=== PATIENT | female | born 1945 | race Two or more races ===

== ENCOUNTER → 2017-03-04 | Outpatient (CLI) | payer OTHER ==
[~2017-03-04] VITALS: Ht 157.5 cm; Wt 61.0 kg
[2017-03-04] VITALS (8 sets, daily range): BP systolic 123–167; BP diastolic 59–73
[~2017-03-04] MED LIST: AMLODIPINE BESYL5 MG PO; ATORVASTATIN CA10 MG PO; LYNPARZA100 MG PO; SYNTHROID50 MCG PO; SYNTHROID75 MCG PO; VALIUM5 MG PO
== END | disposition home or self-care (01) ==
LOC: IVINF 13:30
DX: D64.81 Anemia due to antineoplastic chemotherapy (principal); T45.1X5A Adverse effect of antineoplastic and immunosuppressive drugs, initial encounter
CPT/HCPCS: 36430; 86999; P9016

== ENCOUNTER 2017-07-15 15:49 | Inpatient (IN) | payer OTHER ==
[~2017-07-15] VITALS: Ht 158.8 cm; Wt 59.0 kg
[~2017-07-15 15:49] MED LIST changes: +MIRALAX17 GM PO; +ZOFRAN8 MG PO
[2017-07-15 16:59] LABS: ALBUMIN 4.2 g/dL (3.2-4.8); CHLORIDE 103 mEq/L (99-109); POTASSIUM 4.2 mEq/L (3.7-5.4); SODIUM 137 mEq/L (136-147)
[2017-07-15 17:02] LABS: GLUCOSE 119 mg/dL (70-99)
[2017-07-15 17:04] LABS: TOTAL BILIRUBIN 0.6 mg/dL (0.0-1.0)
[2017-07-15 17:05] LABS: ALKALINE PHOSPHATASE 157 IU/L (3-129); CREATININE 0.8 mg/dL (0.6-1.3); GFR ESTIMATE (CALCULATED) > 59 mL/min/
[2017-07-15 17:06] LABS: UREA NITROGEN (BUN) 16 mg/dL (9-23)
[2017-07-15 17:07] LABS: AST (GOT) 18 IU/L (2-34)
[2017-07-15 17:08] LABS: ALT (GPT) 15 IU/L (3-49)
[2017-07-15 17:09] LABS: LIPASE 5 U/L (1.0-51.0)
[2017-07-15 18:13] LABS: BUFFY COAT SMEAR SEE DIFF RESULTS
[2017-07-15 18:24] LABS: APPEARANCE CLEAR ((CLEAR)); BILIRUBIN NEGATIVE; BLOOD NEGATIVE; COLOR YELLOW ((YELLOW)); GLUCOSE (STRIP) NEGATIVE; KETONES NEGATIVE; LEUKOCYTES NEGATIVE; NITRITE NEGATIVE; PROTEIN (STRIP) NEGATIVE; SPECIFIC GRAVITY 1.013 (1.000-1.030); UCUL ADDED? NO; UROBILINOGEN 0.2 MG/DL (0.2-1.0)
[2017-07-15] MEDS ORDERED: LIDOCAINE-PRIL1 EACH TP (19:39)
[2017-07-15] MEDS ORDERED: AVASTIN400 MG/16 IV (19:40)
[2017-07-15] MEDS ORDERED: DOXIL2 MG/1 ML IV (19:40)
[2017-07-15] MEDS ORDERED: [UNRECOGNIZED DRUG - OTHER] MM (19:41)
[2017-07-15 19:47] LABS: ABS NEUTROPHIL COUNT 0; ANISOCYTOSIS 1+; EOSINOPHIL ABS CT 0; HEMATOCRIT 34.8 % (36.0-46.0); HEMOGLOBIN 11.7 G/DL (11.9-15.5); IMM.PLATELET FRACTION 8.2 (1-7); MCH 31.4 PG (29.0-34.0); MCHC 33.6 G/DL (30.0-36.0); MCV 93.3 FL (83-99); PLAT.SUFFICIENCY VERY DECREASED; RBC DIS.WIDTH-CV 13.1 % (11.8-14.6); RBC DIS.WIDTH-SD 44.9 % (39-53); RED BLOOD COUNT 3.73 M/uL (3.80-5.20); WHITE BLOOD COUNT 0.3 K/uL (4.1-10.2)
[2017-07-15 19:48] LABS: PLATELET COUNT 13 K/uL (156-360)
[2017-07-15 22:20] VITALS: BP 144/67
[2017-07-15 23:49] VITALS: BP 116/56
[2017-07-16] VITALS (10 sets, daily range): BP systolic 124–152; BP diastolic 58–67
[2017-07-16 06:38] LABS: ALBUMIN 3.1 G/DL (3.2-4.8); ALKALINE PHOSPHATASE 91 IU/L (3-129); ALT (GPT) 10 IU/L (3-49); AST (GOT) 13 IU/L (2-34); CHLORIDE 110 MEQ/L (99-109); CREATININE 0.6 MG/DL (0.6-1.3); GFR ESTIMATE (CALCULATED) > 59 mL/min/; GLUCOSE 98 mg/dL (70-99); POTASSIUM 3.6 MEQ/L (3.7-5.4); SODIUM 142 MEQ/L (136-147); TOTAL BILIRUBIN 0.9 MG/DL (0.0-1.0); TOTAL PROTEIN 5.2 G/DL (6.4-8.3); UREA NITROGEN (BUN) 10 mg/dL (9-23)
[2017-07-16 06:51] LABS: HEMATOCRIT 24.6 % (36.0-46.0); MCH 31.9 PG (29.0-34.0); MCHC 33.7 G/DL (30.0-36.0); MCV 94.6 FL (83-99); RBC DIS.WIDTH-CV 13.1 % (11.8-14.6); RBC DIS.WIDTH-SD 45.3 % (39-53)
[2017-07-16 06:55] LABS: HEMOGLOBIN 8.3 G/DL (11.9-15.5); PLATELET COUNT 83 K/uL (156-360); WHITE BLOOD COUNT 0.3 K/uL (4.1-10.2)
[2017-07-17 06:21] LABS: HEMATOCRIT 23.5 % (36.0-46.0); HEMOGLOBIN 7.9 G/DL (11.9-15.5); MCH 32.4 PG (29.0-34.0); MCHC 33.6 G/DL (30.0-36.0); MCV 96.3 FL (83-99); RBC DIS.WIDTH-CV 12.9 % (11.8-14.6); RBC DIS.WIDTH-SD 45.5 % (39-53); RED BLOOD COUNT 2.44 M/uL (3.80-5.20)
[2017-07-17 06:22] LABS: WHITE BLOOD COUNT 0.4 K/uL (4.1-10.2)
[2017-07-17 06:31] LABS: IMM.PLATELET FRACTION 2.5 (1-7)
[2017-07-17 06:33] LABS: CHLORIDE 112 MEQ/L (99-109); CREATININE 0.6 MG/DL (0.6-1.3); GFR ESTIMATE (CALCULATED) > 59 mL/min/; GLUCOSE 89 mg/dL (70-99); POTASSIUM 3.5 MEQ/L (3.7-5.4); SODIUM 142 MEQ/L (136-147); UREA NITROGEN (BUN) 8 mg/dL (9-23)
[2017-07-17 06:39] LABS: PLATELET COUNT 41 K/uL (156-360)
[2017-07-17 07:25] VITALS: BP 117/56
[2017-07-17 10:51] LABS: PLAT.SUFFICIENCY DECREASED
[2017-07-17 11:34] LABS: SMUDGE CELLS 0
[2017-07-17 16:15] VITALS: BP 140/60
[2017-07-17 23:13] VITALS: BP 151/67
[2017-07-18] VITALS (10 sets, daily range): BP systolic 138–190; BP diastolic 63–81
[2017-07-18 06:34] LABS: HEMATOCRIT 24.7 % (36.0-46.0); HEMOGLOBIN 8.2 G/DL (11.9-15.5); MCH 31.2 PG (29.0-34.0); MCHC 33.2 G/DL (30.0-36.0); MCV 93.9 FL (83-99); RBC DIS.WIDTH-CV 13.1 % (11.8-14.6); RBC DIS.WIDTH-SD 44.7 % (39-53); RED BLOOD COUNT 2.63 M/uL (3.80-5.20); WHITE BLOOD COUNT 0.4 K/uL (4.1-10.2)
[2017-07-18 06:46] LABS: CHLORIDE 112 MEQ/L (99-109); CREATININE 0.6 MG/DL (0.6-1.3); GFR ESTIMATE (CALCULATED) > 59 mL/min/; GLUCOSE 96 mg/dL (70-99); POTASSIUM 3.5 MEQ/L (3.7-5.4); SODIUM 141 MEQ/L (136-147); UREA NITROGEN (BUN) 6 mg/dL (9-23)
[2017-07-18 07:25] LABS: IMM.PLATELET FRACTION 3.4 (1-7); PLAT.SUFFICIENCY VERY DECREASED
[2017-07-18 07:35] LABS: PLATELET COUNT 17 K/uL (156-360)
[2017-07-18 18:28] LABS: HEMATOCRIT 23.7 % (36.0-46.0); HEMOGLOBIN 7.9 G/DL (11.9-15.5); MCH 31.2 PG (29.0-34.0); MCHC 33.3 G/DL (30.0-36.0); MCV 93.7 FL (83-99); RBC DIS.WIDTH-SD 45.1 % (39-53); RED BLOOD COUNT 2.53 M/uL (3.80-5.20)
[2017-07-18 18:29] LABS: WHITE BLOOD COUNT 0.3 K/uL (4.1-10.2)
[2017-07-18 18:39] LABS: PLAT.SUFFICIENCY DECREASED
[2017-07-18 18:40] LABS: PLATELET COUNT 69 K/uL (156-360)
[2017-07-19 06:24] LABS: HEMATOCRIT 24.7 % (36.0-46.0); HEMOGLOBIN 8.3 G/DL (11.9-15.5); MCH 31.6 PG (29.0-34.0); MCHC 33.6 G/DL (30.0-36.0); MCV 93.9 FL (83-99); RBC DIS.WIDTH-CV 12.8 % (11.8-14.6); RBC DIS.WIDTH-SD 44.3 % (39-53); RED BLOOD COUNT 2.63 M/uL (3.80-5.20)
[2017-07-19 06:27] LABS: CHLORIDE 109 MEQ/L (99-109); CREATININE 0.6 MG/DL (0.6-1.3); GFR ESTIMATE (CALCULATED) > 59 mL/min/; GLUCOSE 84 mg/dL (70-99); POTASSIUM 3.5 MEQ/L (3.7-5.4); SODIUM 143 MEQ/L (136-147); UREA NITROGEN (BUN) 7 mg/dL (9-23)
[2017-07-19 06:37] LABS: IMM.PLATELET FRACTION 0.9 (1-7); PLATELET COUNT 52 K/uL (156-360)
[2017-07-19 07:42] LABS: BUFFY COAT SMEAR SEE DIFF RESULTS
[2017-07-19 07:44] LABS: ABS NEUTROPHIL COUNT 0; ATYPICAL LYMPHOCYTE 0.9 %; BASOPHILS 9.1 %; EOSINOPHIL ABS CT 0; LYMPHOCYTES 84.6 % (15.0-45.0); MONOCYTES 0.9 % (0-9.0); PLAT.SUFFICIENCY DECREASED; SEG.NEUTROPHILS 4.5 % (46.0-76.0)
[2017-07-19 07:55] LABS: WHITE BLOOD COUNT 0.4 K/uL (4.1-10.2)
[2017-07-19 08:43] VITALS: BP 141/65
[2017-07-19] MEDS ORDERED: CIPROFLOXACIN500 M1 PO (10:08)
[2017-07-19] MEDS ORDERED: VALACYCLOVIR500 MG PO (10:09)
== END 2017-07-19 12:18 | disposition home or self-care (01) | DRG 871 ==
LOC: EME 15:49 → EDOF 20:09 → 5EAST 20:09 → ENRESERV 20:14 → 5EAST 21:55 → ENPENDDIS 07-19 → 5EAST 07-19 12:18
PROVIDERS: Emergency Medicine; Internal Medicine; Internal Medicine Medical Oncology; Physician Assistant
PROC: 30233R1 Transfusion of Nonautologous Platelets into Peripheral Vein, Percutaneous Approach (ICD-10-PCS; principal; 2017-07-16)
DX: A41.9 Sepsis, unspecified organism (principal); K12.30 Oral mucositis (ulcerative), unspecified; D61.810 Antineoplastic chemotherapy induced pancytopenia; R50.81 Fever presenting with conditions classified elsewhere; L27.1 Localized skin eruption due to drugs and medicaments taken internally; T45.1X5A Adverse effect of antineoplastic and immunosuppressive drugs, initial encounter; C56.9 Malignant neoplasm of unspecified ovary; R19.7 Diarrhea, unspecified; R04.0 Epistaxis; E03.9 Hypothyroidism, unspecified; E78.00 Pure hypercholesterolemia, unspecified; I10 Essential (primary) hypertension; F41.9 Anxiety disorder, unspecified; N95.1 Menopausal and female climacteric states; R23.2 Flushing; M54.5 Low back pain; Z79.899 Other long term (current) drug therapy
CPT/HCPCS: 71046; 80048; 80053; 81003; 82565; 83605; 83690; 85007; 85009; 85025; 85027; 86850; 86900; 86901; 86945; 87040; 87081; 87493; 87502; 93970; 99281; 99285; J0133; J0692; J1650; J3370; J7030; J7050; P9035; P9037

== ENCOUNTER 2017-07-26 21:45 | Inpatient (IN) | payer OTHER ==
[~2017-07-26] VITALS: Ht 157.5 cm; Wt 59.5 kg
[~2017-07-26 21:45] MED LIST changes: +AVASTIN400 MG/16 IV; +CIPROFLOXACIN500 M1 PO; +DOXIL2 MG/1 ML IV; +LIDOCAINE-PRIL1 EACH TP; +VALACYCLOVIR500 MG PO; +[UNRECOGNIZED DRUG - OTHER] MM
[2017-07-26 23:58] LABS: APPEARANCE CLEAR ((CLEAR)); BILIRUBIN NEGATIVE; BLOOD NEGATIVE; COLOR YELLOW ((YELLOW)); GLUCOSE (STRIP) NEGATIVE; KETONES NEGATIVE; LEUKOCYTES NEGATIVE; NITRITE NEGATIVE; PROTEIN (STRIP) NEGATIVE; SPECIFIC GRAVITY 1.008 (1.000-1.030); UCUL ADDED? NO; UROBILINOGEN 0.2 MG/DL (0.2-1.0)
[2017-07-27 00:08] LABS: ALBUMIN 3.4 g/dL (3.2-4.8); CHLORIDE 105 mEq/L (99-109); SODIUM 139 mEq/L (136-147)
[2017-07-27 00:09] LABS: GLUCOSE 113 mg/dL (70-99); TOTAL PROTEIN 5.9 g/dL (6.4-8.3)
[2017-07-27 00:11] LABS: TOTAL BILIRUBIN 0.3 mg/dL (0.0-1.0)
[2017-07-27 00:12] LABS: ALKALINE PHOSPHATASE 137 IU/L (3-129)
[2017-07-27 00:13] LABS: CREATININE 0.8 mg/dL (0.6-1.3); GFR ESTIMATE (CALCULATED) > 59 mL/min/
[2017-07-27 00:14] LABS: AST (GOT) 26 IU/L (2-34); UREA NITROGEN (BUN) 11 mg/dL (9-23)
[2017-07-27 00:15] LABS: ALT (GPT) 17 IU/L (3-49)
[2017-07-27 00:20] LABS: POTASSIUM 3.2 mEq/L (3.7-5.4)
[2017-07-27 00:35] LABS: BASOPHIL (%) 0.3 % (0-1); EOSINOPHIL (%) 0 % (0-5); HEMATOCRIT 23.1 % (36.0-46.0); HEMOGLOBIN 7.9 G/DL (11.9-15.5); IMMATURE GRANULOCYTE (%) 1.9 % (0.0-0.7); LYMPHOCYTE (%) 7.2 % (15-42); LYMPHOCYTE COUNT 0.6 K/uL (1.0-2.8); MCHC 34.2 G/DL (30.0-36.0); MCV 93.5 FL (83-99); MONOCYTE (%) 22.8 % (3-12); MONOCYTE COUNT 1.8 K/uL (0-0.8); NEUTROPHIL (%) 67.8 % (45-76); NEUTROPHIL COUNT 5.2 K/uL (1.8-6.4); RBC DIS.WIDTH-CV 13.9 % (11.8-14.6); RBC DIS.WIDTH-SD 46.2 % (39-53); RED BLOOD COUNT 2.47 M/uL (3.80-5.20); WHITE BLOOD COUNT 7.7 K/uL (4.1-10.2)
[2017-07-27] MEDS ORDERED: TYLENOL EXTRA500 MG PO (02:00)
[2017-07-27 02:18] LABS: PLAT.SUFFICIENCY VERY DECREASED
[2017-07-27 02:19] LABS: PLATELET COUNT 47 K/uL (156-360)
[2017-07-27 08:27] VITALS: BP 131/66
[2017-07-27 09:29] LABS: HEMATOCRIT 22.7 % (36.0-46.0); HEMOGLOBIN 7.6 G/DL (11.9-15.5); MCHC 33.5 G/DL (30.0-36.0); MCV 92.7 FL (83-99); PLATELET COUNT 58 K/uL (156-360); RBC DIS.WIDTH-CV 14.1 % (11.8-14.6); RBC DIS.WIDTH-SD 46.8 % (39-53); RED BLOOD COUNT 2.45 M/uL (3.80-5.20); WHITE BLOOD COUNT 8.7 K/uL (4.1-10.2)
[2017-07-27 09:52] LABS: CHLORIDE 106 MEQ/L (99-109); CREATININE 0.7 MG/DL (0.6-1.3); GFR ESTIMATE (CALCULATED) > 59 mL/min/; GLUCOSE 110 mg/dL (70-99); POTASSIUM 3.4 MEQ/L (3.7-5.4); SODIUM 141 MEQ/L (136-147); UREA NITROGEN (BUN) 9 mg/dL (9-23)
[2017-07-27 16:09] VITALS: BP 157/78
[2017-07-27 19:03] VITALS: BP 156/57
[2017-07-27 23:00] VITALS: BP 107/45
[2017-07-28 07:10] VITALS: BP 143/63
[2017-07-28 09:12] LABS: BASOPHIL (%) 0.3 % (0-1); EOSINOPHIL (%) 0 % (0-5); HEMATOCRIT 22.2 % (36.0-46.0); HEMOGLOBIN 7.3 G/DL (11.9-15.5); LYMPHOCYTE (%) 5.8 % (15-42); LYMPHOCYTE COUNT 0.5 K/uL (1.0-2.8); MCH 31.2 PG (29.0-34.0); MCHC 32.9 G/DL (30.0-36.0); MCV 94.9 FL (83-99); MONOCYTE (%) 16.7 % (3-12); MONOCYTE COUNT 1.5 K/uL (0-0.8); NEUTROPHIL (%) 75.2 % (45-76); NEUTROPHIL COUNT 6.6 K/uL (1.8-6.4); PLATELET COUNT 65 K/uL (156-360); RBC DIS.WIDTH-CV 14.5 % (11.8-14.6); RBC DIS.WIDTH-SD 47.8 % (39-53); RED BLOOD COUNT 2.34 M/uL (3.80-5.20); WHITE BLOOD COUNT 8.8 K/uL (4.1-10.2)
[2017-07-28 09:37] LABS: CHLORIDE 107 MEQ/L (99-109); CREATININE 0.8 MG/DL (0.6-1.3); GFR ESTIMATE (CALCULATED) > 59 mL/min/; GLUCOSE 151 mg/dL (70-99); POTASSIUM 3.1 MEQ/L (3.7-5.4); SODIUM 142 MEQ/L (136-147); UREA NITROGEN (BUN) 9 mg/dL (9-23)
[2017-07-28 15:00] VITALS: BP 136/62
[2017-07-29] VITALS (11 sets, daily range): BP systolic 109–156; BP diastolic 53–76
[2017-07-29 06:49] LABS: HEMATOCRIT 18.7 % (36.0-46.0); MCH 31.3 PG (29.0-34.0); MCHC 32.6 G/DL (30.0-36.0); MCV 95.9 FL (83-99); PLATELET COUNT 70 K/uL (156-360); RBC DIS.WIDTH-CV 14.6 % (11.8-14.6); RED BLOOD COUNT 1.95 M/uL (3.80-5.20); WHITE BLOOD COUNT 6.6 K/uL (4.1-10.2)
[2017-07-29 06:55] LABS: HEMOGLOBIN 6.1 G/DL (11.9-15.5)
[2017-07-29 07:13] LABS: CHLORIDE 112 MEQ/L (99-109); CREATININE 0.7 MG/DL (0.6-1.3); GFR ESTIMATE (CALCULATED) > 59 mL/min/; SODIUM 141 MEQ/L (136-147); UREA NITROGEN (BUN) 10 mg/dL (9-23)
[2017-07-29 07:14] LABS: GLUCOSE 97 mg/dL (70-99); POTASSIUM 4.3 MEQ/L (3.7-5.4)
[2017-07-29 08:38] LABS: ALBUMIN 2.6 G/DL (3.2-4.8)
[2017-07-29 20:39] LABS: HEMATOCRIT 29.2 % (36.0-46.0); HEMOGLOBIN 10.1 G/DL (11.9-15.5); MCV 88.8 FL (83-99)
[2017-07-30 00:22] VITALS: BP 127/59
[2017-07-30 06:20] LABS: HEMATOCRIT 27.1 % (36.0-46.0); HEMOGLOBIN 9.2 G/DL (11.9-15.5); MCHC 33.9 G/DL (30.0-36.0); MCV 88.3 FL (83-99); PLATELET COUNT 58 K/uL (156-360); RBC DIS.WIDTH-CV 16.4 % (11.8-14.6); RBC DIS.WIDTH-SD 51.2 % (39-53)
[2017-07-30 06:32] LABS: RED BLOOD COUNT 3.07 M/uL (3.80-5.20)
[2017-07-30 06:38] LABS: CHLORIDE 109 MEQ/L (99-109); CREATININE 0.6 MG/DL (0.6-1.3); GFR ESTIMATE (CALCULATED) > 59 mL/min/; GLUCOSE 90 mg/dL (70-99); POTASSIUM 4.3 MEQ/L (3.7-5.4); SODIUM 140 MEQ/L (136-147); UREA NITROGEN (BUN) 10 mg/dL (9-23)
[2017-07-30 08:00] VITALS: BP 153/70
[2017-07-30 14:25] LABS: ALBUMIN 2.6 G/DL (3.2-4.8); ALKALINE PHOSPHATASE 176 IU/L (3-129); ALT (GPT) 43 IU/L (3-49); AST (GOT) 70 IU/L (2-34); DIRECT BILIRUBIN 0.1 mg/dL (0.0-0.3); TOTAL BILIRUBIN 0.4 MG/DL (0.0-1.0); TOTAL PROTEIN 4.7 G/DL (6.4-8.3)
[2017-07-30 16:30] VITALS: BP 131/62
[2017-07-31 00:45] VITALS: BP 128/60
[2017-07-31 08:00] VITALS: BP 191/78
[2017-07-31 08:19] LABS: HEMATOCRIT 28.7 % (36.0-46.0); HEMOGLOBIN 9.9 G/DL (11.9-15.5); MCH 29.9 PG (29.0-34.0); MCHC 34.5 G/DL (30.0-36.0); MCV 86.7 FL (83-99); PLATELET COUNT 56 K/uL (156-360); RBC DIS.WIDTH-CV 15.9 % (11.8-14.6); RBC DIS.WIDTH-SD 49.1 % (39-53); RED BLOOD COUNT 3.31 M/uL (3.80-5.20); WHITE BLOOD COUNT 9.4 K/uL (4.1-10.2)
[2017-07-31 09:18] VITALS: BP 135/63
[2017-07-31] MEDS ORDERED: PERCOCET 5/31 TABLET PO (11:11)
[2017-08-05] MEDS ORDERED: OXYCODONE-ACET1 EACH PO (11:07)
== END 2017-07-31 12:47 | disposition home or self-care (01) | DRG 864 ==
LOC: EME 21:45 → EDOF 07-27 06:50 → 5EAST 07-27 06:50 → ENRESERV 07-27 06:51 → 5EAST 07-27 08:09
PROVIDERS: Emergency Medicine; Hospitalist; Nurse Practitioner Family; Physician Assistant
PROC: 30233N1 Transfusion of Nonautologous Red Blood Cells into Peripheral Vein, Percutaneous Approach (ICD-10-PCS; principal; 2017-07-29)
DX: R50.2 Drug induced fever (principal); M54.5 Low back pain; Z92.21 Personal history of antineoplastic chemotherapy; R21 Rash and other nonspecific skin eruption; C56.9 Malignant neoplasm of unspecified ovary; E03.9 Hypothyroidism, unspecified; I10 Essential (primary) hypertension; N13.30 Unspecified hydronephrosis; T45.1X5A Adverse effect of antineoplastic and immunosuppressive drugs, initial encounter; R50.81 Fever presenting with conditions classified elsewhere; D63.0 Anemia in neoplastic disease
CPT/HCPCS: 71046; 71260; 72158; 74177; 80048; 80053; 80076; 81003; 82040; 85014; 85018; 85025; 85027; 86850; 86900; 86901; 86920; 87040; 94799; 99281; 99285; J0696; J7030; J7050; J9201; P9040; Q0164